=== PATIENT | female | born 1975 | race Caucasian/White ===

== ENCOUNTER 2018-07-30 08:53 | Emergency (ER) | payer MEDICAID ==
[~2018-07-30] VITALS: Ht 160 cm; Wt 71.2 kg
[~2018-07-30 08:53] MED LIST: HYDR-3672 PO; HYDR-762 PO; ONDA4TAB35 PO
[2018-07-30 08:59] VITALS: BP 185/86; PULSE 72; RESP 18; Ht 160 cm; Wt 71.2 kg
[2018-07-30] MEDS ORDERED: morphine 4 MG/ML VIAL IV STA (09:21)
[2018-07-30] MEDS ORDERED: SOD CHLORIDE 0.9% 1,000 ML IV STA (09:21)
[2018-07-30] MEDS ORDERED: ONDANSETRON 4 MG INJ IV STA (09:21)
[2018-07-30] MEDS ORDERED: NITROFURANTOIN (SR) 100 MG CAP PO ONE (10:30)
[2018-07-30] MEDS ORDERED: IBUP-1542 PO (11:22)
[2018-07-30] MEDS ORDERED: NITR-58 PO (11:22)
[2018-07-30] MEDS ORDERED: ONDA4TAB14 PO (11:22)
[2018-07-30] MEDS ORDERED: HYDROmorphONE 2 MG/ML SYG IV STA (11:23)
--- NOTE | 2018-07-30 11:27 | ERD ---
ER Documentation Chief Complaint Chief Complaint AP WITH VOMITING SINCE LAST NIGHT HPI Patient is a 43-year-old female with hypertension who presents with abdominal pain. The patient has midepigastric abdominal pain. Patient has no fevers. The symptoms started last night. The symptoms have been constant. She has had no treatment as of yet. Upon review of old medical records this is the patient's third visit to the ER since 2016. She does not currently have a primary doctor. ROS All systems reviewed and are negative except as per history of present illness. Medications Home Meds Active Scripts Nitrofurantoin Monohyd Macrocr* (Macrobid*) 100 Mg Capsr, 100 MG PO BID for 7 Days, CAP Prov:RUCHI PETERSEN MD 07/30/18 Ondansetron (Ondansetron Odt) 4 Mg Tab.rapdis, 4 MG PO Q6H PRN for NAUSEA AND/OR VOMITING, #10 TAB Prov:RUCHI PETERSEN MD 07/30/18 Ibuprofen* (Motrin*) 600 Mg Tab, 600 MG PO Q6H PRN for PAIN AND OR ELEVATED TE MP, #30 TAB Prov:RUCHI PETERSEN MD 07/30/18 Discontinued Scripts Hydralazine Hcl* (Hydralazine Hcl*) 50 Mg Tab, 50 MG PO Q6, #120 TAB Prov:LAVERN KNIGHT 02/16/16 Ondansetron Hcl* (Zofran* ODT) 4 mg -ODT Tab.disper, 4 MG PO Q6 PRN for NAUSEA AND/OR VOMITING, #10 TAB Prov:LAVERN KNIGHT 05/18/15 Hydrocodone Bit-Acetaminophen* ([place]*) 10-325 Mg Tablet, 1 TAB PO Q6 PRN for PAIN, #20 TAB Prov:LAVERN KNIGHT 05/18/15 Allergies Allergies: Coded Allergies: No Known Allergy (Unverified , 07/30/18) PMhx/Soc History of Surgery: No Anesthesia Reaction: No Hx Neurological Disorder: No Hx Respiratory Disorders: No Hx Cardiac Disorders: No Hx Psychiatric Problems: No Hx Miscellaneous Medical Probl: Yes (Gastritis) Hx Alcohol Use: No Hx Substance Use: No Hx Tobacco Use: No Smoking Status: Never smoker FmHx Family History: No diabetes Physical Exam Vitals Vital Signs Date Temp Pulse Resp B/P (MAP) Pulse Ox O2 O2 Flow FiO2 Time Delivery Rate 07/30/18 98.4 72 18 185/86 99 08:59 (119) Physical Exam Const: No acute distress Head: Atraumatic Eyes: Normal Conjunctiva ENT: Normal External Ears, Nose and Mouth. Neck: Full range of motion. No meningismus. Resp: Clear to auscultation bilaterally Cardio: Regular rate and rhythm, no murmurs Abd: Soft, epigastric tenderness to palpation Skin: No petechiae or rashes Back: No midline or flank tenderness Ext: No cyanosis, or edema Neur: Awake and alert Psych: Normal Mood and Affect Result Diagram: 07/30/1894307/30/18943 Results 24 hrs Laboratory Tests Test 07/30/18 09:40 07/30/18 09:44 07/30/18 09:55 Urine Color YELLOW Urine Clarity SLIGHTLY CLOUDY Urine pH 5.0 Urine Specific [place] 1.024 Urine Ketones NEGATIVE mg/dL Urine Nitrite NEGATIVE mg/dL Urine Bilirubin NEGATIVE mg/dL Urine Urobilinogen NEGATIVE mg/dL Urine Leukocyte Esterase TRACE Radha/ul Urine Microscopic RBC 3 /HPF Urine Microscopic WBC 6 /HPF Urine Squamous Epithelial Cells FEW /HPF Urine Hemoglobin 1+ mg/dL Urine Glucose NEGATIVE mg/dL Urine Total Protein NEGATIVE mg/dl White Blood Count 10.6 10^3/ul Red Blood Count 4.41 10^6/ul Hemoglobin 13.4 g/dl Hematocrit 39.8 % Mean Corpuscular Volume 90.2 fl Mean Corpuscular Hemoglobin 30.4 pg Mean Corpuscular 33.7 g/dl Hemoglobin Concent Red Cell Distribution Width 13.4 % Platelet Count 396 10^3/UL Mean Platelet Volume 9.5 fl Immature Granulocytes % 0.300 % Neutrophils % 82.6 % Lymphocytes % 12.8 % Monocytes % 3.7 % Eosinophils % 0.2 % Basophils % 0.4 % Nucleated Red Blood Cells % 0.0 /100WBC Immature Granulocytes # 0.030 10^3/ul Neutrophils # 8.8 10^3/ul Lymphocytes # 1.4 10^3/ul Monocytes # 0.4 10^3/ul Eosinophils # 0.0 10^3/ul Basophils # 0.0 10^3/ul Nucleated Red Blood Cells # 0.0 10^3/ul Sodium Level 140 mmol/L Potassium Level 4.3 mmol/L Chloride Level 109 mmol/L Carbon Dioxide Level 23 mmol/L Anion Gap 8 Blood Urea Nitrogen 11 mg/dl Creatinine 0.64 mg/dl Est Glomerular Filtrat > 60 mL/min Rate mL/min Glucose Level 141 mg/dl Calcium Level 9.5 mg/dl Total Bilirubin 0.5 mg/dl Direct Bilirubin 0.00 mg/dl Indirect Bilirubin 0.5 mg/dl Aspartate Amino 22 IU/L Transf (AST/SGOT) Alanine 31 IU/L Aminotransferase (ALT/SGPT) Alkaline Phosphatase 111 IU/L Total Protein 7.9 g/dl Albumin 4.4 g/dl Globulin 3.50 g/dl Albumin/Globulin Ratio 1.25 Lipase 80 U/L POC Beta HCG, Qualitative NEGATIVE Current Medications Medications Dose Sig/Elizabeth Start Time Status Last (Trade) Ordered Route PRN Stop Time Admin Dose Reason Admin Sodium 1,000 ml @ Q1H STAT 07/30/18 DC 07/30/18 Chloride 1,000 mls/hr IV 09:21 10:28 07/30/18 10:20 Morphine 4 mg ONCE STAT 07/30/18 DC 07/30/18 Sulfate IV 09:21 10:28 (morphine) 07/30/18 09:22 Ondansetron 4 mg ONCE STAT 07/30/18 DC 07/30/18 HCl (Zofran IV 09:21 10:28 Inj) 07/30/18 09:22 100 mg ONCE ONCE 07/30/18 DC 07/30/18 Nitrofurantoi PO 10:30 11:02 n 07/30/18 10:32 Macrocrystals (Macrobid) 1 mg ONCE STAT 07/30/18 DC Hydromorphone IV 11:23 HCl 07/30/18 11:24 (Dilaudid) Procedures/MDM Ultrasound shows gallstones without cholecystitis per radiology. Patient is a 43-year-old female who presents with abdominal pain. She was found to have biliary colic. She has gallstones but no pericholecystic fluid or wall thickening. LFTs and lipase were normal. White blood cell count was normal. At this point I doubt cholecystitis, pancreatitis, appendicitis, or bowel obstruction. I believe the risk of doing a CT scan of the abdomen and pelvis outweigh the benefits. The patient will need to follow-up closely with Dr. Prescott from surgery for outpatient elective cholecystectomy. She can return for any worsening symptoms. She was found to have mild cystitis and I will treat her with Macrobid. She will need to follow-up closely with the local clinics within 24 to 48 hours for reevaluation. She was provided with copies of her laboratory studies and ultrasound report prior to discharge. Departure Diagnosis: Primary Impression: Biliary colic Additional Impressions: Abdominal pain Abdominal location: epigastric Qualified Codes: R10.13 - Epigastric pain Cystitis Condition: Fair Patient Instructions: Cystitis, Biliary Colic With Gallstone (Confirmed) Referrals: [facility] () Usted se pond hecho un examen mdico de control que le indica que no est en neena condicin que requiera tratamiento urgente en el Departamento de Emergencia. Un estudio ms profundo y el tratamiento de valerio condicin pueden esperar sin ningn riesgo hasta que usted sea atendida/o en el consultorio de valerio mdico o neena clnica. Es responsabilidad suya arreglar neena robb para el seguimiento del yara. MANEJO DE CONDICIONES NO URGENTES EN EL FUTURO 1) Si usted tiene un mdico de atencin primaria: Usted debera llamar a valerio mdico de atencin primaria antes de venir al departamento de emergencia. Despus de las horas de consultorio, valerio doctor o valerio asociado/a est disponible por telfono. El mdico o enfermero de dash en el servicio telefnico puede asesorarle por dread medio para atender el problema, o yara contrario se puede programar neena robb. 2) Si usted no tiene un mdico de atencin primaria: Llame al mdico o clnica de referencia que aparece abajo mely las horas de consultorio para hacer neena robb para que le vean. CLINICAS: [facility] [phone] [id number] [facility] 398 [phone] [facility] [phone] [facility] [phone] [address] [facility] [phone] [address] [facility]. [phone] [address] Additional Instructions: Specialist:Usted tiene neena condicin mdica que requiere que adalid a un especialista dentro de los prximos 1-2 manriquez.POR FAVOR,CON VALERIO SEGUIMIENTO DE PRIMARIA PHSICIAN refferal. SI USTED NO TIENE UN MDICO GENERAL Y / O USTED NO PUEDE PAGAR tomeka a un mdico,los siguientes landeros RECURSOS sido suministrado a usted. ES VALERIO RESPONSABILIDAD PARA SER VISTOS POR EL ESPECIALISTA: RUCHI PETERSEN MD Jul 30, 2018 11:27
== END 2018-07-30 12:19 | disposition home or self-care (01) ==
LOC: E/R 08:53
DX: K80.50 Calculus of bile duct without cholangitis or cholecystitis without obstruction (principal)
CPT/HCPCS: 36415; 76705; 80053; 81001; 81025; 83690; 85025; 96374; 96375; J1170; J2270; J2405; J7030; Z7502; Z7610